=== PATIENT | female | born 1965 | race Caucasian/White ===

== ENCOUNTER 2021-12-03 14:52 | Inpatient (IN) | payer MEDICAID ==
[2021-12-04] MEDS ORDERED: NON-FORMULARY EACH (Albuterol Sulfate [Proair Digihaler] 90 MCG Aer.Pw.Bas) IH SCH (09:15)
--- NOTE | 2021-12-04 09:22 | History and Physical Report ---
GP History & Physical - History of Present Illness Date of admission: 12/03/21 Date of Examination: 12/04/21 Reason for Admission: Danger to self, Failure of Outpatient Treatment, Severe anxiety/depression History of Present Illness: The patient was seen today. She was admitted to [facility] after being found in a [employer] bathroom screaming she was seeing snakes and witches. The patient has a history of schizoaffective and methamphetamine use, per report. The patient denied illicit drug use during the evaluation. The patient makes poor eye contact. Her affect is restricted. She appears anxious and tense. She says she is seeing snakes trying to get in her body. She says "they are trying to crawl in me." The patient denies SI/HI. She says she could not recall any of her psych meds. PAST PSYCHIATRIC HISTORY: Diagnoses: schizoaffective disorder Suicide attempts or Self-harm behavior: Denies Prior psychiatric hospitalizations: yes Substance Abuse history: denies Previous psychiatric medications tried: Could not recall Outpatient treatment: yes PAST MEDICAL HISTORY: None reported Family Psychiatric History: None reported or documented SOCIAL HISTORY Marital Status: Living Arrangements: roommate Employment Status: disabled Access to guns/weapons: Denies Education: History of Abuse:Denies Legal History: Denies REVIEW OF SYSTEMS Constitutional: Negative for weight loss ENT: Negative for stridor Respiratory: Negative for cough or hemoptysis All other systems reviewed and are negative MENTAL STATUS EXAMINATION General Appearance and Behavior: Age appropriate, good hygiene, wearing appropriate clothes, anxious, cooperative Cooperation: Cooperative Psychomotor Behavior: Psychomotor normal Mood: depressed Affect and affective range: restricted Thought Process: illogical Thought Content: hallucinations, delusional Speech: Normal tone and pace Suicidal Ideation: Denies Homicidal Ideation: Denies Hallucinations: Visual Delusions: Yes Impulse Control: Limited Insight and Judgment: poor insight and poor judgment Memory: Limited Attention: distracted Orientation: a/o Assessment (1)Schizoaffective Current Visit: Yes Status: Acute Treatment Plan Patient admitted for inpatient psychiatric evaluation, medication adjustment and close monitoring The patient's behavior, mood, sleep and appetite will be closely monitored. Patient enrolled in individual and group therapeutic sessions and encouraged to attend. Patient provided with a safe and structured environment. Patient's physical health needs will be addressed by the Hospitalist. Hospitalist Consulted Labs including CBC, CMP, Lipid profile and Hemoglobin A1C levels ordered for baseline reference Social Assessment will be completed and the Director [facility] will work with patient and family to ensure a suitable and safe disposition Medication adjustment will be made as clinically indicated Restarted home meds Vistaril 50mg po BID Usual Wellness Restorationism/Preservation: - Start Trazodone 50 mg po QHS & 50 mg po QHS PRN between 10 PM & 2 AM for insomnia - Start Melatonin 5 mg po QHS to promote circadian rhythm The patient agreed on the treatment plan, understood the risk, benefit, alternative treatment, potential consequence of no treatment, and gave informed consent. Estimated days: 7 Post hospital care: primary care provider, psychiatric provider Case staffed with Dr. Aguilar Legal Status: Voluntary Reaction to Hospitalization: Accepting Medications and Allergies Allergies Allergy/AdvReac Type Severity Reaction Status Date / Time morphine Allergy Unknown Unverified 12/03/21 15:15 Home Medications Medication Instructions Recorded Confirmed Last Taken Type ARIPiprazole [Aripiprazole] 20 mg PO QHS 12/03/21 12/03/21 Unknown History Albuterol Sulfate [Proair 180 mcg IH Q4H 12/03/21 12/03/21 Unknown History Digihaler] DULoxetine [Cymbalta] 30 mg PO QDAY 12/03/21 12/03/21 Unknown History DULoxetine [Cymbalta] 60 mg PO QDAY 12/03/21 12/03/21 Unknown History Levothyroxine Sodium 175 mcg PO DAILY 12/03/21 12/04/21 Unknown History [Levothyroxine] Omeprazole 40 mg PO DAILY 12/04/21 12/04/21 Unknown History traZODone [Desyrel] 100 mg PO QHS 12/04/21 12/04/21 Unknown History Active Meds: Active Medications Aripiprazole (Aripiprazole 10 Mg Tab) 20 mg PO QHS [facility] Duloxetine HCl (Duloxetine 30 Mg Cap) 30 mg PO QDAY [facility] Miscellaneous Medication (Albuterol Sulfate [Proair Digihaler]) 180 mcg IH Q4H [facility] Miscellaneous Medication (Levothyroxine Sodium [Levothyroxine]) 175 mcg PO DAILY [facility] Miscellaneous Medication (Omeprazole [Omeprazole]) 40 mg PO DAILY [facility] Trazodone HCl (Trazodone 100 Mg Tab) 100 mg PO QHS [facility] Results - Results Labs/Vitals: Last Vital Signs Temp 97.9 F 12/03/21 19:46 Pulse 89 12/03/21 19:46 Resp 18 12/03/21 19:46 BP 111/67 12/03/21 19:46 Pulse Ox 95 12/03/21 19:46 Physical Examination - Constitutional Vitals: Vital Signs Temp Pulse Resp BP Pulse Ox 97.9 F 89 18 111/67 95 12/03/21 19:46 12/03/21 19:46 12/03/21 19:46 12/03/21 19:46 12/03/21 19:46 Temperature -Last 24 Hours Temperature 97.9 F Mental Status Exam - Vital signs Last Vital Signs Temp 97.9 F 12/03/21 19:46 Pulse 89 12/03/21 19:46 Resp 18 12/03/21 19:46 BP 111/67 12/03/21 19:46 Pulse Ox 95 12/03/21 19:46 Physician Certification - Certification Statement Physician Certification Statement: This is an acknowledgement statement that DANIEL PACHECO is a 55 year old F who requires inpatient psychiatric admission for treatment which could reasonably be expected to improve the patient's condition for Estimated period of time patient will need to remain in the hospital: [ ] Plan for post-hospital care: [ ]
[2021-12-04] MEDS ORDERED: NON-FORMULARY EACH (Omeprazole [Omeprazole] 40 MG Capsule.Dr) PO SCH (10:00)
[2021-12-04] MEDS ORDERED: LEVOTHYROXINE SODIUM 175 MCG PO SCH (10:00)
[2021-12-04 10:43] LABS: Basophils % (Auto) 0.3 % (0.0-1.8); Eosinophils # (Auto) 0.3 K/mm3 (0.0-0.4); Eosinophils % (Auto) 2.6 % (0.0-4.3); Hematocrit 38.2 % (30.3-42.9); Hemoglobin 12.3 gm/dl (10.1-14.3); Lymphocytes # (Auto) 2.4 K/mm3 (1.2-5.4); Lymphocytes % (Auto) 19.9 % (13.4-35.0); Mean Corpuscular HGB Conc 32 % (30-34); Mean Corpuscular Volume 82 fl (79-97); Monocytes # (Auto) 0.8 K/mm3 (0.0-0.8); Monocytes % (Auto) 6.7 % (0.0-7.3); Platelet Count 458 K/mm3 (140-440); Red Blood Count 4.67 M/mm3 (3.65-5.03); Red Cell Distribution Width 17.3 % (13.2-15.2)
[2021-12-04] MEDS: LEVOTHYROXINE 75 MCG TAB PO SCH (10:46)
[2021-12-04] MEDS: DULoxetine 30 MG CAP PO SCH (10:46)
[2021-12-04] MEDS: PANTOPRAZOLE 40 MG TAB PO SCH (10:46)
[2021-12-04 11:10] LABS: Alanine Aminotransferase 39 units/L (7-56); Albumin 4.1 g/dL (3.9-5); Blood Urea Nitrogen 16 mg/dL (7-17); Calcium 9.8 mg/dL (8.4-10.2); Chol/HDL Ratio 4.51 %; HDL Cholesterol 52 mg/dL (40-59); Hemolysis Index 1; LDL Cholesterol,Direct 151 mg/dL (50-130)
[2021-12-04 11:24] LABS: BUN/Creatinine Ratio 27
[2021-12-04] MEDS ORDERED: ALBUTEROL 2.5 MG/3 ML NEBU IH PRN (12:05)
--- NOTE | 2021-12-04 12:16 | Consultation ---
Medications and Allergies Allergies Allergy/AdvReac Type Severity Reaction Status Date / Time morphine Allergy Unknown Unverified 12/03/21 15:15 Home Medications Medication Instructions Recorded Confirmed Last Taken Type ARIPiprazole [Aripiprazole] 20 mg PO QHS 12/03/21 12/03/21 Unknown History Albuterol Sulfate [Proair 180 mcg IH Q4H 12/03/21 12/03/21 Unknown History Digihaler] DULoxetine [Cymbalta] 30 mg PO QDAY 12/03/21 12/03/21 Unknown History DULoxetine [Cymbalta] 60 mg PO QDAY 12/03/21 12/03/21 Unknown History Levothyroxine Sodium 175 mcg PO DAILY 12/03/21 12/04/21 Unknown History [Levothyroxine] Omeprazole 40 mg PO DAILY 12/04/21 12/04/21 Unknown History traZODone [Desyrel] 100 mg PO QHS 12/04/21 12/04/21 Unknown History Active Meds: Active Medications Albuterol (Albuterol 2.5 Mg/3 Ml Nebu) 2.5 mg IH Q4HRT PRN PRN Reason: Shortness Of Breath Aripiprazole (Aripiprazole 10 Mg Tab) 20 mg PO QHS [facility] Duloxetine HCl (Duloxetine 30 Mg Cap) 30 mg PO QDAY [facility] Last Admin: 12/04/21 10:46 Dose: 30 mg Hydroxyzine Pamoate (Hydroxyzine Pamoate 50 Mg Cap) 50 mg PO BID [facility] Last Admin: 12/04/21 10:47 Dose: 50 mg Levothyroxine Sodium (Levothyroxine 100 Mcg Tab) 100 mcg PO DAILY@0600 [facility] Levothyroxine Sodium (Levothyroxine 75 Mcg Tab) 75 mcg PO DAILY@0600 [facility] Last Admin: 12/04/21 10:46 Dose: 75 mcg Melatonin (Melatonin 5 Mg Tab) 5 mg PO QHS PRN PRN Reason: Sleep Pantoprazole Sodium (Pantoprazole 40 Mg Tab) 40 mg PO DAILY [facility] Last Admin: 12/04/21 10:46 Dose: 40 mg Trazodone HCl (Trazodone 100 Mg Tab) 100 mg PO QHS [facility] Exam - Constitutional Vitals: Temp Pulse Resp BP Pulse Ox 97.9 F 89 18 111/67 95 12/03/21 19:46 12/03/21 19:46 12/03/21 19:46 12/03/21 19:46 12/03/21 19:46 Results - Labs CBC & Chem 7: 12/04/21 10:17 12/04/21 10:17 Labs: Abnormal lab results 12/04/21 12/04/21 12/04/21 Range/Units 10:17 10:17 10:17 WBC 12.1 H (4.5-11.0) K/mm3 MCH 27 L (28-32) pg RDW 17.3 H (13.2-15.2) % Plt Count 458 H (140-440) K/mm3 Seg Neutrophils % 70.5 H (40.0-70.0) % Seg Neutrophils # 8.5 H (1.8-7.7) K/mm3 Glucose 127 H (65-100) mg/dL Cholesterol 235 H (50-199) mg/dL LDL Cholesterol Direct 151 H (50-130) mg/dL TSH 26.740 H (0.270-4.200) mlU/mL
[2021-12-04] MEDS: LEVOTHYROXINE 100 MCG TAB PO SCH ×2 (14:12→16:55)
[2021-12-04] MEDS ORDERED: ARIPiprazole 10 MG TAB PO SCH (22:00)
[2021-12-04] MEDS ORDERED: MELATONIN 5 MG TAB PO PRN (22:00)
[2021-12-04] MEDS: traZODone 100 MG TAB PO SCH (22:50)
[2021-12-05] MEDS: LEVOTHYROXINE 100 MCG TAB PO SCH (06:47)
[2021-12-05] MEDS: LEVOTHYROXINE 75 MCG TAB PO SCH (07:18)
--- NOTE | 2021-12-05 09:15 | Progress Note ---
Subjective Date of service: 12/05/21 Principal diagnosis: Schizoaffective Disorder Subjective Comment: REVIEW OF SYSTEMS Constitutional: Negative for weight loss ENT: Negative for stridor Respiratory: Negative for cough or hemoptysis All other systems reviewed and are negative MENTAL STATUS EXAMINATION General Appearance and Behavior: Age appropriate, good hygiene, wearing appropriate clothes, anxious, cooperative Cooperation: Cooperative Psychomotor Behavior: Psychomotor normal Mood: depressed Affect and affective range: restricted Thought Process: illogical Thought Content: hallucinations, delusional Speech: Normal tone and pace Suicidal Ideation: Denies Homicidal Ideation: Denies Hallucinations: Visual Delusions: Yes Impulse Control: Limited Insight and Judgment: poor insight and poor judgment Memory: Limited Attention: distracted Orientation: a/o Assessment (1)Schizoaffective Current Visit: Yes Status: Acute Treatment Plan Patient admitted for inpatient psychiatric evaluation, medication adjustment and close monitoring The patient's behavior, mood, sleep and appetite will be closely monitored. Patient enrolled in individual and group therapeutic sessions and encouraged to attend. Patient provided with a safe and structured environment. Patient's physical health needs will be addressed by the Hospitalist. Hospitalist Consulted Labs including CBC, CMP, Lipid profile and Hemoglobin A1C levels ordered for baseline reference Social Assessment will be completed and the Location Worker will work with patien t and family to ensure a suitable and safe disposition Medication adjustment will be made as clinically indicated Increase Abilify 30mg po daily Start Cymbalta 30mg po daily Usual Wellness Orthodoxy/Preservation: - Start Trazodone 50 mg po QHS & 50 mg po QHS PRN between 10 PM & 2 AM for insomnia - Start Melatonin 5 mg po QHS to promote circadian rhythm The patient agreed on the treatment plan, understood the risk, benefit, alternative treatment, potential consequence of no treatment, and gave informed consent. Estimated days: 7 Post hospital care: primary care provider, psychiatric provider Case staffed with Dr. Aguilar Medications and Allergies Allergies Allergy/AdvReac Type Severity Reaction Status Date / Time morphine Allergy Unknown Unverified 12/03/21 15:15 Home Medications Medication Instructions Recorded Confirmed Last Taken Type ARIPiprazole [Aripiprazole] 20 mg PO QHS 12/03/21 12/03/21 Unknown History Albuterol Sulfate [Proair 180 mcg IH Q4H 12/03/21 12/03/21 Unknown History Digihaler] DULoxetine [Cymbalta] 30 mg PO QDAY 12/03/21 12/03/21 Unknown History DULoxetine [Cymbalta] 60 mg PO QDAY 12/03/21 12/03/21 Unknown History Levothyroxine Sodium 175 mcg PO DAILY 12/03/21 12/04/21 Unknown History [Levothyroxine] Omeprazole 40 mg PO DAILY 12/04/21 12/04/21 Unknown History traZODone [Desyrel] 100 mg PO QHS 12/04/21 12/04/21 Unknown History Active Meds: Active Medications Albuterol (Albuterol 2.5 Mg/3 Ml Nebu) 2.5 mg IH Q4HRT PRN PRN Reason: Shortness Of Breath Aripiprazole (Aripiprazole 10 Mg Tab) 20 mg PO QHS [facility] Last Admin: 12/04/21 22:50 Dose: 20 mg Duloxetine HCl (Duloxetine 30 Mg Cap) 30 mg PO QDAY [facility] Last Admin: 12/04/21 10:46 Dose: 30 mg Hydroxyzine Pamoate (Hydroxyzine Pamoate 50 Mg Cap) 50 mg PO BID [facility] Last Admin: 12/04/21 22:49 Dose: 50 mg Levothyroxine Sodium (Levothyroxine 100 Mcg Tab) 100 mcg PO DAILY@0600 [facility] Last Admin: 12/05/21 06:47 Dose: 100 mcg Levothyroxine Sodium (Levothyroxine 75 Mcg Tab) 75 mcg PO DAILY@0600 [facility] Last Admin: 12/05/21 07:18 Dose: 75 mcg Melatonin (Melatonin 5 Mg Tab) 5 mg PO QHS PRN PRN Reason: Sleep Pantoprazole Sodium (Pantoprazole 40 Mg Tab) 40 mg PO DAILY [facility] Last Admin: 12/04/21 10:46 Dose: 40 mg Trazodone HCl (Trazodone 100 Mg Tab) 100 mg PO QHS [facility] Last Admin: 12/04/21 22:50 Dose: 100 mg Results - Results Labs/Vitals: Laboratory Last Values WBC 12.1 K/mm3 (4.5-11.0) H 12/04/21 10:17 RBC 4.67 M/mm3 (3.65-5.03) 12/04/21 10:17 Hgb 12.3 gm/dl (10.1-14.3) 12/04/21 10:17 Hct 38.2 % (30.3-42.9) 12/04/21 10:17 MCV 82 fl (79-97) 12/04/21 10:17 MCH 27 pg (28-32) L 12/04/21 10:17 MCHC 32 % (30-34) 12/04/21 10:17 RDW 17.3 % (13.2-15.2) H 12/04/21 10:17 Plt Count 458 K/mm3 (140-440) H 12/04/21 10:17 Lymph % (Auto) 19.9 % (13.4-35.0) 12/04/21 10:17 [place] % (Auto) 6.7 % (0.0-7.3) 12/04/21 10:17 Eos % (Auto) 2.6 % (0.0-4.3) 12/04/21 10:17 Baso % (Auto) 0.3 % (0.0-1.8) 12/04/21 10:17 Lymph # (Auto) 2.4 K/mm3 (1.2-5.4) 12/04/21 10:17 [place] # (Auto) 0.8 K/mm3 (0.0-0.8) 12/04/21 10:17 Eos # (Auto) 0.3 K/mm3 (0.0-0.4) 12/04/21 10:17 Baso # (Auto) 0.0 K/mm3 (0.0-0.1) 12/04/21 10:17 Seg Neutrophils % 70.5 % (40.0-70.0) H 12/04/21 10:17 Seg Neutrophils # 8.5 K/mm3 (1.8-7.7) H 12/04/21 10:17 Sodium 138 mmol/L (137-145) 12/04/21 10:17 Potassium 4.5 mmol/L (3.6-5.0) 12/04/21 10:17 Chloride 103.0 mmol/L (98-107) 12/04/21 10:17 Carbon Dioxide 23 mmol/L (22-30) 12/04/21 10:17 Anion Gap 17 mmol/L 12/04/21 10:17 BUN 16 mg/dL (7-17) 12/04/21 10:17 Creatinine 0.6 mg/dL (0.6-1.2) 12/04/21 10:17 Estimated GFR > 60 ml/min 12/04/21 10:17 BUN/Creatinine Ratio 27 % 12/04/21 10:17 Glucose 127 mg/dL (65-100) H 12/04/21 10:17 Hemoglobin A1c 5.9 % (4-6) 12/04/21 10:17 Calcium 9.8 mg/dL (8.4-10.2) 12/04/21 10:17 Total Bilirubin < 0.20 mg/dL (0.1-1.2) 12/04/21 10:17 AST 33 units/L (5-40) 12/04/21 10:17 ALT 39 units/L (7-56) 12/04/21 10:17 Alkaline Phosphatase 109 units/L (35-129) 12/04/21 10:17 Total Protein 6.9 g/dL (6.3-8.2) 12/04/21 10:17 Albumin 4.1 g/dL (3.9-5) 12/04/21 10:17 Albumin/Globulin Ratio 1.5 % 12/04/21 10:17 Triglycerides 132 mg/dL (2-149) 12/04/21 10:17 Cholesterol 235 mg/dL (50-199) H 12/04/21 10:17 LDL Cholesterol Direct 151 mg/dL (50-130) H 12/04/21 10:17 HDL Cholesterol 52 mg/dL (40-59) 12/04/21 10:17 Cholesterol/HDL Ratio 4.51 % 12/04/21 10:17 TSH 26.740 mlU/mL (0.270-4.200) H 12/04/21 10:17 Last Vital Signs Temp 97.7 F 12/05/21 07:21 Pulse 73 12/05/21 07:21 Resp 18 12/05/21 07:21 BP 88/50 12/05/21 07:21 Pulse Ox 95 12/05/21 07:21
[2021-12-05] MEDS: DULoxetine 30 MG CAP PO SCH (10:34)
[2021-12-05] MEDS: PANTOPRAZOLE 40 MG TAB PO SCH (10:35)
[2021-12-05] MEDS: ARIPiprazole 15 MG TAB PO SCH (11:44)
[2021-12-05] MEDS: DULoxetine 20 MG CAP PO SCH (13:25)
[2021-12-05] MEDS: traZODone 100 MG TAB PO SCH (21:59)
[2021-12-06] MEDS: LEVOTHYROXINE 100 MCG TAB PO SCH (05:54)
[2021-12-06] MEDS: LEVOTHYROXINE 75 MCG TAB PO SCH (05:54)
--- NOTE | 2021-12-06 08:00 | Progress Note ---
Subjective Date of service: 12/06/21 Principal diagnosis: Schizoaffective Disorder Subjective Comment: The patient was seen today. She is withdrawn and appears depressed. She makes poor eye contact. Her affect is flat. She is lying in bed. She says she is depressed. The patient says "I'm going to lose my job, house, and car because I'm here." She denies SI/HI. When asked about seeing the snakes, the patient replies "not right now." REVIEW OF SYSTEMS Constitutional: Negative for weight loss ENT: Negative for stridor Respiratory: Negative for cough or hemoptysis All other systems reviewed and are negative MENTAL STATUS EXAMINATION General Appearance and Behavior: Age appropriate, good hygiene, wearing appropriate clothes, anxious, cooperative Cooperation: Cooperative Psychomotor Behavior: Psychomotor normal Mood: depressed Affect and affective range: restricted Thought Process: illogical Thought Content: hallucinations, delusional Speech: Normal tone and pace Suicidal Ideation: Denies Homicidal Ideation: Denies Hallucinations: Visual Delusions: Yes Impulse Control: Limited Insight and Judgment: poor insight and poor judgment Memory: Limited Attention: distracted Orientation: a/o Assessment (1)Schizoaffective Current Visit: Yes Status: Acute Treatment Plan Patient admitted for inpatient psychiatric evaluation, medication adjustment and close monitoring The patient's behavior, mood, sleep and appetite will be closely monitored. Patient enrolled in individual and group therapeutic sessions and encouraged to attend. Patient provided with a safe and structured environment. Patient's physical health needs will be addressed by the Hospitalist. Hospitalist Consulted Labs including CBC, CMP, Lipid profile and Hemoglobin A1C levels ordered for baseline reference Social Assessment will be completed and the Executive Legal Secretary will work with patient and family to ensure a suitable and safe disposition Medication adjustment will be made as clinically indicated Abilify 30mg po daily Cymbalta 30mg po daily Usual Wellness Adventist/Preservation: - Start Trazodone 50 mg po QHS & 50 mg po QHS PRN between 10 PM & 2 AM for insomnia - Start Melatonin 5 mg po QHS to promote circadian rhythm The patient agreed on the treatment plan, understood the risk, benefit, alternative treatment, potential consequence of no treatment, and gave informed consent. Estimated days: 7 Post hospital care: primary care provider, psychiatric provider Case staffed with Dr. Aguilar Medications and Allergies Allergies Allergy/AdvReac Type Severity Reaction Status Date / Time morphine Allergy Unknown Unverified 12/03/21 15:15 Home Medications Medication Instructions Recorded Confirmed Last Taken Type ARIPiprazole [Aripiprazole] 20 mg PO QHS 12/03/21 12/03/21 Unknown History Albuterol Sulfate [Proair 180 mcg IH Q4H 12/03/21 12/03/21 Unknown History Digihaler] DULoxetine [Cymbalta] 30 mg PO QDAY 12/03/21 12/03/21 Unknown History DULoxetine [Cymbalta] 60 mg PO QDAY 12/03/21 12/03/21 Unknown History Levothyroxine Sodium 175 mcg PO DAILY 12/03/21 12/04/21 Unknown History [Levothyroxine] Omeprazole 40 mg PO DAILY 12/04/21 12/04/21 Unknown History traZODone [Desyrel] 100 mg PO QHS 12/04/21 12/04/21 Unknown History Active Meds: Active Medications Albuterol (Albuterol 2.5 Mg/3 Ml Nebu) 2.5 mg IH Q4HRT PRN PRN Reason: Shortness Of Breath Aripiprazole (Aripiprazole 15 Mg Tab) 30 mg PO QDAY [facility] Last Admin: 12/05/21 11:44 Dose: 30 mg Duloxetine HCl (Duloxetine 20 Mg Cap) 40 mg PO QDAY [facility] Last Admin: 12/05/21 13:25 Dose: 40 mg Hydroxyzine Pamoate (Hydroxyzine Pamoate 50 Mg Cap) 50 mg PO BID [facility] Last Admin: 12/05/21 22:00 Dose: Not Given Levothyroxine Sodium (Levothyroxine 100 Mcg Tab) 100 mcg PO DAILY@0600 [facility] Last Admin: 12/06/21 05:54 Dose: 100 mcg Levothyroxine Sodium (Levothyroxine 75 Mcg Tab) 75 mcg PO DAILY@0600 [facility] Last Admin: 12/06/21 05:54 Dose: 75 mcg Melatonin (Melatonin 5 Mg Tab) 5 mg PO QHS PRN PRN Reason: Sleep Pantoprazole Sodium (Pantoprazole 40 Mg Tab) 40 mg PO DAILY [facility] Last Admin: 12/05/21 10:35 Dose: 40 mg Trazodone HCl (Trazodone 100 Mg Tab) 100 mg PO QHS [facility] Last Admin: 12/05/21 21:59 Dose: Not Given Results - Results Labs/Vitals: Laboratory Last Values WBC 12.1 K/mm3 (4.5-11.0) H 12/04/21 10:17 RBC 4.67 M/mm3 (3.65-5.03) 12/04/21 10:17 Hgb 12.3 gm/dl (10.1-14.3) 12/04/21 10:17 Hct 38.2 % (30.3-42.9) 12/04/21 10:17 MCV 82 fl (79-97) 12/04/21 10:17 MCH 27 pg (28-32) L 12/04/21 10:17 MCHC 32 % (30-34) 12/04/21 10:17 RDW 17.3 % (13.2-15.2) H 12/04/21 10:17 Plt Count 458 K/mm3 (140-440) H 12/04/21 10:17 Lymph % (Auto) 19.9 % (13.4-35.0) 12/04/21 10:17 [place] % (Auto) 6.7 % (0.0-7.3) 12/04/21 10:17 Eos % (Auto) 2.6 % (0.0-4.3) 12/04/21 10:17 Baso % (Auto) 0.3 % (0.0-1.8) 12/04/21 10:17 Lymph # (Auto) 2.4 K/mm3 (1.2-5.4) 12/04/21 10:17 [place] # (Auto) 0.8 K/mm3 (0.0-0.8) 12/04/21 10:17 Eos # (Auto) 0.3 K/mm3 (0.0-0.4) 12/04/21 10:17 Baso # (Auto) 0.0 K/mm3 (0.0-0.1) 12/04/21 10:17 Seg Neutrophils % 70.5 % (40.0-70.0) H 12/04/21 10:17 Seg Neutrophils # 8.5 K/mm3 (1.8-7.7) H 12/04/21 10:17 Sodium 138 mmol/L (137-145) 12/04/21 10:17 Potassium 4.5 mmol/L (3.6-5.0) 12/04/21 10:17 Chloride 103.0 mmol/L (98-107) 12/04/21 10:17 Carbon Dioxide 23 mmol/L (22-30) 12/04/21 10:17 Anion Gap 17 mmol/L 12/04/21 10:17 BUN 16 mg/dL (7-17) 12/04/21 10:17 Creatinine 0.6 mg/dL (0.6-1.2) 12/04/21 10:17 Estimated GFR > 60 ml/min 12/04/21 10:17 BUN/Creatinine Ratio 27 % 12/04/21 10:17 Glucose 127 mg/dL (65-100) H 12/04/21 10:17 Hemoglobin A1c 5.9 % (4-6) 12/04/21 10:17 Calcium 9.8 mg/dL (8.4-10.2) 12/04/21 10:17 Total Bilirubin < 0.20 mg/dL (0.1-1.2) 12/04/21 10:17 AST 33 units/L (5-40) 12/04/21 10:17 ALT 39 units/L (7-56) 12/04/21 10:17 Alkaline Phosphatase 109 units/L (35-129) 12/04/21 10:17 Total Protein 6.9 g/dL (6.3-8.2) 12/04/21 10:17 Albumin 4.1 g/dL (3.9-5) 12/04/21 10:17 Albumin/Globulin Ratio 1.5 % 12/04/21 10:17 Triglycerides 132 mg/dL (2-149) 12/04/21 10:17 Cholesterol 235 mg/dL (50-199) H 12/04/21 10:17 LDL Cholesterol Direct 151 mg/dL (50-130) H 12/04/21 10:17 HDL Cholesterol 52 mg/dL (40-59) 12/04/21 10:17 Cholesterol/HDL Ratio 4.51 % 12/04/21 10:17 TSH 26.740 mlU/mL (0.270-4.200) H 12/04/21 10:17 Last Vital Signs Temp 97.7 F 12/05/21 19:33 Pulse 72 12/05/21 19:33 Resp 18 12/05/21 19:33 BP 93/60 12/05/21 19:33 Pulse Ox 94 12/05/21 19:33
[2021-12-06] MEDS: DULoxetine 20 MG CAP PO SCH (09:43)
[2021-12-06] MEDS: ARIPiprazole 15 MG TAB PO SCH (10:00)
[2021-12-06] MEDS: PANTOPRAZOLE 40 MG TAB PO SCH (11:10)
[2021-12-06] MEDS: traZODone 100 MG TAB PO SCH (22:10)
[2021-12-07] MEDS: LEVOTHYROXINE 100 MCG TAB PO SCH (05:43)
[2021-12-07] MEDS: LEVOTHYROXINE 75 MCG TAB PO SCH (05:43)
--- NOTE | 2021-12-07 08:42 | Discharge Summary ---
Providers - Providers Date of Admission: 12/04/21 00:54 Date of discharge: 12/07/21 Attending physician: KEITH ALAMO MD 12/03/21 19:39 Consult to Physician [CONS] Routine Comment: Consulting Provider: DEEPA LAFLEUR Physician Instructions: Reason For Exam: H & P Primary care physician: [employer] Hospitalization Hospital course: The patient was provided inpatient psychiatric treatment with safe and supportive environment, group/individual therapy, psychiatric medication, medication adjustment, adverse effect monitor, medical evaluation, medical treatment, social service assessment, social support meeting, placement assessment and psycho-education. The patients mood, cognition, behavior, motivation, compliance to treatment and appreciation on family/social support are improved and stabilized. At the time of discharge, the patient had no suicidal ideas, no homicidal ideas, no aggressive thoughts, no endangering behavior and no debilitating adverse effects. The patient agreed on the treatment plan, understood the risk, benefit, alternative treatment, potential consequence of no treatment, and gave informed consent. Progress Note: 12/06:The patient was seen today. She is withdrawn and appears depressed. She makes poor eye contact. Her affect is flat. She is lying in bed. She says she is depressed. The patient says "I'm going to lose my job, house, and car because I'm here." She denies SI/HI. When asked about seeing the snakes, the patient replies "not right now." Disposition: 30 STILL A PATIENT Allergies/Adverse Reactions: Allergies morphine Allergy (Unverified 12/03/21 15:15) Unknown Vital Signs: Last Vital Signs Temp 97.7 F 12/05/21 19:33 Pulse 72 12/05/21 19:33 Resp 18 12/05/21 19:33 BP 93/60 12/05/21 19:33 Pulse Ox 94 12/05/21 19:33 Last Lab: Laboratory Last Values WBC 12.1 K/mm3 (4.5-11.0) H 12/04/21 10:17 RBC 4.67 M/mm3 (3.65-5.03) 12/04/21 10:17 Hgb 12.3 gm/dl (10.1-14.3) 12/04/21 10:17 Hct 38.2 % (30.3-42.9) 12/04/21 10:17 MCV 82 fl (79-97) 12/04/21 10:17 MCH 27 pg (28-32) L 12/04/21 10:17 MCHC 32 % (30-34) 12/04/21 10:17 RDW 17.3 % (13.2-15.2) H 12/04/21 10:17 Plt Count 458 K/mm3 (140-440) H 12/04/21 10:17 Lymph % (Auto) 19.9 % (13.4-35.0) 12/04/21 10:17 Refugio % (Auto) 6.7 % (0.0-7.3) 12/04/21 10:17 Eos % (Auto) 2.6 % (0.0-4.3) 12/04/21 10:17 Baso % (Auto) 0.3 % (0.0-1.8) 12/04/21 10:17 Lymph # (Auto) 2.4 K/mm3 (1.2-5.4) 12/04/21 10:17 [place]ugio # (Auto) 0.8 K/mm3 (0.0-0.8) 12/04/21 10:17 Eos # (Auto) 0.3 K/mm3 (0.0-0.4) 12/04/21 10:17 Baso # (Auto) 0.0 K/mm3 (0.0-0.1) 12/04/21 10:17 Seg Neutrophils % 70.5 % (40.0-70.0) H 12/04/21 10:17 Seg Neutrophils # 8.5 K/mm3 (1.8-7.7) H 12/04/21 10:17 Sodium 138 mmol/L (137-145) 12/04/21 10:17 Potassium 4.5 mmol/L (3.6-5.0) 12/04/21 10:17 Chloride 103.0 mmol/L (98-107) 12/04/21 10:17 Carbon Dioxide 23 mmol/L (22-30) 12/04/21 10:17 Anion Gap 17 mmol/L 12/04/21 10:17 BUN 16 mg/dL (7-17) 12/04/21 10:17 Creatinine 0.6 mg/dL (0.6-1.2) 12/04/21 10:17 Estimated GFR > 60 ml/min 12/04/21 10:17 BUN/Creatinine Ratio 27 % 12/04/21 10:17 Glucose 127 mg/dL (65-100) H 12/04/21 10:17 Hemoglobin A1c 5.9 % (4-6) 12/04/21 10:17 Calcium 9.8 mg/dL (8.4-10.2) 12/04/21 10:17 Total Bilirubin < 0.20 mg/dL (0.1-1.2) 12/04/21 10:17 AST 33 units/L (5-40) 12/04/21 10:17 ALT 39 units/L (7-56) 12/04/21 10:17 Alkaline Phosphatase 109 units/L (35-129) 12/04/21 10:17 Total Protein 6.9 g/dL (6.3-8.2) 12/04/21 10:17 Albumin 4.1 g/dL (3.9-5) 12/04/21 10:17 Albumin/Globulin Ratio 1.5 % 12/04/21 10:17 Triglycerides 132 mg/dL (2-149) 12/04/21 10:17 Cholesterol 235 mg/dL (50-199) H 12/04/21 10:17 LDL Cholesterol Direct 151 mg/dL (50-130) H 12/04/21 10:17 HDL Cholesterol 52 mg/dL (40-59) 12/04/21 10:17 Cholesterol/HDL Ratio 4.51 % 12/04/21 10:17 TSH 26.740 mlU/mL (0.270-4.200) H 12/04/21 10:17 Core Measure Documentation - Palliative Care Palliative Care/ Comfort Measures: Not Applicable - Core Measures Any of the following diagnoses?: none - VTE Discharge Requirements Deep Vein Thrombosis/Pulmonary Embolism Present on Admission: No Exam - Constitutional Vitals: Temp Pulse Resp BP Pulse Ox 97.7 F 72 18 93/60 94 12/05/21 19:33 12/05/21 19:33 12/05/21 19:33 12/05/21 19:33 12/05/21 19:33 Plan Activity: advance as tolerated Weight Bearing Status: Weight Bear as Tolerated Care Plan Goals: Maintain good and stable mental health. Plan of Treatment: The patient should be compliant with medications, not to use drugs and not to drink alcohol.The patient understands that if suicidal ideas, homicidal ideas, or any endangering thoughts/behavior arise, they should immediately seek for emergent assistance including but not limited to crisis hot line and emergency room. Follow up with outpatient Psychiatrist and PCP within 7 - 14 days of discharge. Follow up with: PRIMARY CARE,MD [Primary Care Provider] - 7 Days Prescriptions: ARIPiprazole [Abilify TAB] 30 mg PO QDAY 30 Days #30 tablet
[2021-12-07] MEDS: ARIPiprazole 15 MG TAB PO SCH (10:10)
[2021-12-07] MEDS: PANTOPRAZOLE 40 MG TAB PO SCH (10:10)
[2021-12-07] MEDS: DULoxetine 20 MG CAP PO SCH (10:11)
[2021-12-07 13:21] VITALS: BP 112/90
== END 2021-12-07 13:15 | disposition home or self-care (01) | DRG 885 ==
LOC: UNDOADMIN 14:52 → 3A 14:52 → 5A 12-04 00:54
PROVIDERS: ADMIT Psychiatry & Neurology Psychiatry; ATTEND Psychiatry & Neurology Psychiatry
DX: F25.9 Schizoaffective disorder, unspecified (principal); Z88.5 Allergy status to narcotic agent
CPT/HCPCS: 36415; 80053; 80061; 83036; 84443; 85025; G0378; Q0177